=== PATIENT | female | born 2000 | race Two or more races ===

== ENCOUNTER 2021-07-27 12:37 | Emergency (ER) | payer OTHER ==
[~2021-07-27] VITALS: Ht 160 cm; Wt 55.8 kg
[2021-07-27] MEDS ORDERED: ZOVIRAX400 MG PO (16:33)
== END 2021-07-27 16:57 | disposition home or self-care (01) ==
LOC: ER 12:37
DX: A60.09 Herpesviral infection of other urogenital tract (principal); Z20.822 Contact with and (suspected) exposure to COVID-19

== ENCOUNTER 2021-12-06 05:00 | Emergency (ER) | payer OTHER ==
[~2021-12-06] VITALS: Ht 160 cm; Wt 53.5 kg
[~2021-12-06 05:00] MED LIST: ZOVIRAX400 MG PO
== END 2021-12-06 11:58 | disposition home or self-care (01) ==
LOC: ER 05:00
DX: O20.9 Hemorrhage in early pregnancy, unspecified (principal); Z3A.01 Less than 8 weeks gestation of pregnancy